=== PATIENT | female | born 1985 ===

== ENCOUNTER 2024-09-24 10:56 | Outpatient (CLI) | payer OTHER | END 2024-09-24 11:42 | disposition home or self-care (01) | LOC: NST 10:56 | PROVIDERS: ATTEND Obstetrics & Gynecology Maternal & Fetal Medicine | DX: Z34.83 Encounter for supervision of other normal pregnancy, third trimester (principal) ==

== ENCOUNTER 2024-10-08 18:28 | Outpatient (CLI) | payer OTHER | END 2024-10-08 18:43 | disposition home or self-care (01) | LOC: NST 18:28 | PROVIDERS: ATTEND Obstetrics & Gynecology | DX: Z3A.35 35 weeks gestation of pregnancy (principal) ==